=== PATIENT | male | born 1975 | race Caucasian/White ===

== ENCOUNTER 2017-12-13 01:38 | Emergency (ER) ==
[2017-12-13] MEDS ORDERED: ASPIRIN CHEWABLE PO STA (01:42)
[2017-12-13] MEDS ORDERED: SODIUM CHLORIDE 1,000 ML IV STA (01:42)
[2017-12-13] MEDS ORDERED: NITROSTAT SL STA ×2 (01:43→03:04)
[2017-12-13 01:48] VITALS: BP 149/101; TEMP 98.1; BMI 35.9
[2017-12-13] MEDS ORDERED: MORPHINE 2 MG/ML SYRINGE IVP STA ×2 (01:49→02:27)
--- NOTE | 2017-12-13 01:49 | ED.PDOC ---
General ED Provider: Dr. STEFFANIE BEVERLY-ER Chief Complaint: Chest Pain Stated Complaint: giovanni been hurting for the past 3 hours Time Seen by Physician: 01:48 Mode of Arrival: Walk-In Information Source: Patient, Family Exam Limitations: No limitations Nursing and Triage Documentation Reviewed and Agree: Yes Does patient meet sepsis criteria?: No System Inflammatory Response Syndrome: Not Applicable Sepsis Protocol: For patient's 13 years and over: Temp is 96.8 and below OR 101 and greater Pulse >90 BPM Resp >20/minute Acutely Altered Mental Status Are patient's symptoms suggestive of a new infection, such as: -Pneumonia -Skin, Soft Tissue -Endocarditis -UTI -Bone, Joint Infection -Implantable Device -Acute Abdominal Infection -Wound Infection -Meningitis -Blood Stream Catheter Infection -Unknown Cardiovascular Complaint Exam - Chest Pain Complaint/Exam Onset: Gradual Duration: 3 hours Symptoms Are: Still present Length of Chest Pain Episodes: 3 hrs Initial Severity: Mild Current Severity: Moderate Location: Reports: Discrete, Midsternal Character: Reports: Dull, Aching, Tightness Alleviating: Reports: Nitro Associated Signs and Symptoms: Denies: Diaphoresis, Nausea, Vomiting, Fever, Palpitations, Cough, Hemoptysis, Back pain, Abdominal pain, Dizziness, Short of air, Calf pain, Calf swelling Related Surgical History: Reports: None History of Healthcare-Acquired Pneumonia: Reports: No AMI/ACS Risk Factors: Reports: Obesity, Hypertension Prior Care for this Complaint: No Recent Stress Test: No Recent Echo/LV Function: No JVD Present: No Subcutaneous Emphysema Present: No Diminshed Breath Sounds: No Reproducible Chest Wall Pain: No Bilateral Pulses Present: Yes Rail Manager Consulted: No Differential Diagnoses: Acute MO, ACS, Stable Angina Review of Systems - Review Of Systems Constitutional: Reports: No symptoms Eyes: Reports: No symptoms Ears, Nose, Mouth, Throat: Reports: No symptoms Respiratory: Reports: No symptoms Cardiac: Reports: Chest pain GI: Reports: No symptoms : Reports: No symptoms Musculoskeletal: Reports: No symptoms Skin: Reports: No symptoms Neurological: Reports: No symptoms Endocrine: Reports: No symptoms Hematologic/Lymphatic: Reports: No symptoms All Other Systems: Reviewed and Negative Past Medical History - Past Medical History Previously Healthy: No Endocrine: Reports: Unknown Cardiovascular: Reports: Hypertension Respiratory: Reports: Other Hematological: Reports: Unknown Gastrointestinal: Reports: Unknown Genitourinary: Reports: Unknown Neuro/Psych: Reports: Unknown Musculoskeletal: Reports: Unknown Cancer: Reports: Unknown - Surgical History General Surgical History: Reports: Unknown - Family History Family History: Reports: Unknown - Social History Smoking Status: Never smoker Physical Exam - Physical Exam Appearance: Well-appearing, No pain distress, Well-nourished Pain Distress: Moderate Eyes: JESSIE, EOMI, Conjunctiva clear ENT: Ears normal, Nose normal, Oropharynx normal Neck: Supple Respiratory: Airway patent, Breath sounds clear, Breath sounds equal, Respirations nonlabored Cardiovascular: RRR, Pulses normal, No rub, No murmur GI/: Soft Musculoskeletal: Normal strength, ROM intact, No edema, No calf tenderness Skin: Warm, Dry, Normal color Neurological: Sensation intact, Motor intact, Reflexes intact, Cranial nerves intact, Alert, Oriented Psychiatric: Affect appropriate, Mood appropriate Interpretation - EKG Interpretation Time of EKG #1: 01:56 Rate: Normal Rhythm: Sinus Ectopy: None [place]: NL ST Segment: Normal Interpretation: nsr Physician Notification - Case Discussed Physician Notified: dr velarde Time of Notification: 01:56 Critical Care Note - Critical Care Note Total Time (mins): 0 Course - Course Hematology/Chemistry: 12/13/17 01:48 Orders, Labs, Meds: Lab Review 12/13/17 01:48 WBC 10.18 RBC 5.09 Hgb 15.2 Hct 44.0 MCV 86.4 MCH 29.9 MCHC 34.5 RDW Coeff of Reyna 11.9 Plt Count 302 Immature Gran % (Auto) 0.4 Neut % (Auto) 54.1 Lymph % (Auto) 32.8 [place] % (Auto) 9.4 Eos % (Auto) 2.2 Baso % (Auto) 1.1 Immature Gran # (Auto) 0.0 Neut # (Auto) 5.5 Lymph # (Auto) 3.3 [place] # (Auto) 1.0 Eos # (Auto) 0.2 Baso # (Auto) 0.1 Orders Category Date Time Status EKG-(ED ONLY) Stat CARDIO 12/13/17 01:41 Ordered IV [ED IV/MEDIPORT/POWERPORT] .ONCE EMERGENCY 12/13/17 01:41 Active AMYLASE Stat LAB 12/13/17 01:41 Ordered CBC W/ AUTO DIFF Stat LAB 12/13/17 01:48 Completed COMPREHENSIVE METABOLIC PANEL Stat LAB 12/13/17 01:41 Ordered CREATINE KINASE Stat LAB 12/13/17 01:41 Ordered LIPASE Stat LAB 12/13/17 01:41 Ordered TROPONIN I Stat LAB 12/13/17 01:41 Ordered 0.9 % Sodium Chloride [Saline Flush] MEDS 12/13/17 01:41 Ordered 1 syr IVF PRN PRN Morphine Sulfate [Morphine 2 mg/ml Syringe] MEDS 12/13/17 01:49 Discontinued 2 mg IVP ONCE STA Nitroglycerin [Nitrostat] MEDS 12/13/17 01:43 Discontinued 0.4 mg SL ONCE STA Ondansetron HCl/Pf [Zofran 4 mg/2 ml] MEDS 12/13/17 01:50 Discontinued 4 mg IVP ONCE STA Sodium Chloride 0.9% [Sodium Chloride] 1,000 ml MEDS 12/13/17 01:42 Active IV 100 mls/hr CXR [CHEST, 1V AP ONLY] Stat RADS 12/13/17 01:49 Ordered Medications Generic Name Dose Route Start Last Admin Trade Name Freq PRN Reason Stop Dose Admin Sodium Chloride 1,000 mls @ 100 mls/hr 12/13/17 01:42 Sodium Chloride IV 12/13/17 11:41 .Q10H STA Sodium Chloride 1 syr 12/13/17 01:41 Saline Flush IVF PRN PRN To flush IV Discontinued Medications Generic Name Dose Route Start Last Admin Trade Name Freq PRN Reason Stop Dose Admin Morphine Sulfate 2 mg 12/13/17 01:49 Morphine 2 Mg/Ml Syringe IVP 12/13/17 01:50 ONCE STA Nitroglycerin 0.4 mg 12/13/17 01:43 Nitrostat SL 12/13/17 01:44 ONCE STA Ondansetron HCl 4 mg 12/13/17 01:50 Zofran 4 Mg/2 Ml IVP 12/13/17 01:51 ONCE STA Vital Signs: Temp Pulse Resp BP Pulse Ox 12/13/17 01:41 98.1 F 66 18 149/101 H 98 NICOLE Risk Score NICOLE Risk Score: Risk Score Odds of by 30D 0 0.1 (0.1-0.2) 1 0.3 (0.2-0.3) 2 0.4 (0.3-0.5) 3 0.7 (0.6-0.9) 4 1.2 (1.0-1.5) 5 2.2 (1.9-2.6) 6 3.0 (2.5-3.6) 7 4.8 (3.8-6.1) Departure - Departure Time of Disposition: 01:56 Disposition: HOME SELF-CARE Discharge Problem: Chest pain Instructions: Chest Pain (ED) Condition: Good Pt referred to PMD for follow-up: Yes IPMP verified?: No Allergies/Adverse Reactions: Allergies No Known Drug Allergies Adverse Reaction (Verified 12/13/17 01:49) Home Medications: Ambulatory Orders 1 [No Reported Medications] 12/13/17 Transfer Form Completed: Yes Disposition Discussed With: Patient, Family
[2017-12-13] MEDS ORDERED: ZOFRAN 4 MG/2 ML IVP STA (01:50)
--- NOTE | 2017-12-13 02:24 | DI ---
EXAM: Portable chest HISTORY: Chest pain COMPARISON: None. FINDINGS: The cardiomediastinal silhouette is normal. The lungs are clear bilaterally. No osseous abnormalities are identified. IMPRESSION: No evidence of active pulmonary disease.
[2017-12-13] MEDS ORDERED: DILAUDID 1 MG/ML SYRINGE IVP STA (03:04)
== END 2017-12-13 04:00 | disposition short-term general hospital (02) ==
LOC: ED 01:38
DX: R07.9 Chest pain, unspecified (principal); I10 Essential (primary) hypertension; E66.9 Obesity, unspecified
CPT/HCPCS: 36415; 80053; 82150; 82550; 83690; 84484; 85025; 93005; 93010; 96374; 96375; 96376; 99285

== ENCOUNTER 2017-12-13 04:20 | Outpatient (CLI) ==
[2017-12-13 01:48] VITALS: BMI 35.9
== END 2017-12-13 04:21 | disposition home or self-care (01) ==
LOC: AMBL 04:20
PROVIDERS: ATTEND Family Medicine
DX: R07.9 Chest pain, unspecified (principal)